=== PATIENT | male | born 1990 | race Hispanic/Latino ===

== ENCOUNTER 2022-03-31 21:20 | Emergency (ER) | payer SELFPAY ==
[2022-03-31] MEDS ORDERED: HALOPERIDOL LACTATE 5 MG/1 ML INJ IM PRN (21:48)
[2022-03-31] MEDS ORDERED: LORazepam 2 MG/ML VIAL IM PRN (21:48)
[2022-03-31 21:51] LABS: Bilirubin,Urine NEG (Negative); Blood,Urine NEG (Negative); Color,Urine Yellow (Yellow); Protein,Urine <15 mg/dL mg/dL (Negative); Urobilinogen,Urine < 2.0 mg/dL (<2.0)
--- NOTE | 2022-03-31 21:54 | Emergency Department Report ---
ED General Adult HPI - General Chief complaint: Psych Stated complaint: SUICIDIAL THOUGHTS Time Seen by Provider: 03/31/22 21:47 Source: patient, RN notes reviewed Mode of arrival: Ambulatory Limitations: No Limitations - History of Present Illness Initial comments: The patient was evaluated in the emergency department for symptoms described in the history of present illness. He/she was evaluated in the context of the global COVID-19 pandemic, which necessitated consideration that the patient might be at risk for infection with the virus that causes COVID-19. Institutional protocols and algorithms that pertain to the evaluation of patients at risk for COVID-19 are in a state of rapid change based on information released by regulatory bodies including the CDC and federal and state organizations. These policies and algorithms were followed during the patient's care in the emergency department. Please note that these policies, procedures and recommendations changed on a rapid basis. This is a 31-year-old gentleman with a history of psychiatric disease, who has not been on his Zyprexa or Depakote for approximately 6 months, Who presents to the department today with a complaint of suicidality, hallucinations, and plans to kill himself. He denies physical pain, cough and urinary symptoms. He denies COVID symptoms. He states he has not tried to overdose today. Triggers include his father recently dying 2 days ago. -: days(s) Consistency: constant Improves with: none Worsens with: none Associated Symptoms: denies other symptoms - Related Data Allergies Allergy/AdvReac Type Severity Reaction Status Date / Time No Known Allergies Allergy Verified 03/31/22 21:30 ED Review of Systems ROS: Stated complaint: SUICIDIAL THOUGHTS Other details as noted in HPI Comment: All other systems reviewed and negative Psychiatric: as per HPI, suicidal thoughts. denies: homicidal thoughts ED Physical Exam - General Limitations: No Limitations General appearance: alert, in no apparent distress - Head Head exam: Present: atraumatic, normocephalic - Eye Eye exam: Present: normal appearance, EOMI. Absent: nystagmus - ENT ENT exam: Present: normal exam, normal orophraynx, mucous membranes moist, normal external ear exam - Neck Neck exam: Present: normal inspection, full ROM. Absent: tenderness, meningismus - Respiratory Respiratory exam: Present: normal lung sounds bilaterally. Absent: respiratory distress, wheezes, rales, rhonchi, stridor, decreased breath sounds - Cardiovascular Cardiovascular Exam: Present: regular rate, normal rhythm, normal heart sounds. Absent: bradycardia, tachycardia, irregular rhythm, systolic murmur, diastolic murmur, rubs, gallop - GI/Abdominal GI/Abdominal exam: Present: soft. Absent: distended, tenderness, guarding, rebound, rigid, pulsatile mass - Rectal Rectal exam: Present: deferred - Extremities Exam Extremities exam: Present: normal inspection, full ROM, normal capillary refill, other (2+ pulses noted in the bilateral upper and lower extremities. There is no palpable cord. negative Homans sign. Muscular compartments are soft. The pelvis is stable.). Absent: pedal edema, calf tenderness - Back Exam Back exam: Present: normal inspection, full ROM. Absent: tenderness, CVA tenderness (R), CVA tenderness (L), paraspinal tenderness, vertebral tenderness - Neurological Exam Neurological exam: Present: alert, oriented X3, normal gait, other (No facial droop. Tongue midline. Extraocular movements intact bilaterally. Facial sensation intact to light touch in V1, V2, V3 distribution bilaterally. 5 and a 5 strength in 4 extremities. Sensation intact to light touch in 4 extremities.). Absent: motor sensory deficit - Psychiatric Psychiatric exam: Present: anxious, suicidal ideation. Absent: agitated, manic, homicidal ideation - Skin Skin exam: Present: warm, dry, intact, normal color. Absent: rash ED Course Vital Signs 03/31/22 21:29 Temperature 98.3 F Pulse Rate 66 Respiratory 18 Rate Blood Pressure 126/77 O2 Sat by Pulse 97 Oximetry - Reevaluation(s) Reevaluation #1: 03/31/22 21:52 Differential diagnosis, including but not limited to to: Depression with psychotic features, medical clearance for psychiatric placement Assessment and plan: 31-year-old gentleman, who is afebrile, with reassuring vital signs, with a benign and unremarkable physical examination, GCS of 15, with a complaint of depression, suicidality and hallucinations. Place patient on 1013. Obtain appropriate laboratory studies. As needed medications ordered. Obtain psychiatric consultation. Discussed this with the patient. He is agreeable to the plan of care. Reassess after laboratory studies have resulted. 03/31/22 23:37 Laboratory studies are unremarkable. COVID swab is pending. The emergency room will follow along as this results. The patient is not hypoxic or symptomatic. I do not clinically suspect acute COVID. At this point in time, this patient does not appear to have an immediate medical contraindication to psychiatric admission, evaluation, consultation and placement. ED Medical Decision Making - Lab Data Result diagrams: 03/31/22 22:55 03/31/22 22:55 Vital Signs 03/31/22 21:29 Temperature 98.3 F Pulse Rate 66 Respiratory 18 Rate Blood Pressure 126/77 O2 Sat by Pulse 97 Oximetry Lab Results 03/31/22 03/31/22 03/31/22 Range/Units 22:55 22:55 22:55 WBC (4.5-11.0) K/mm3 RBC (3.65-5.03) M/mm3 Hgb (11.8-15.2) gm/dl Hct (35.5-45.6) % MCV (84-94) fl MCH (28-32) pg MCHC (32-34) % RDW (13.2-15.2) % Plt Count (140-440) K/mm3 Lymph % (Auto) (13.4-35.0) % [place] % (Auto) (0.0-7.3) % Eos % (Auto) (0.0-4.3) % Baso % (Auto) (0.0-1.8) % Lymph # (Auto) (1.2-5.4) K/mm3 [place] # (Auto) (0.0-0.8) K/mm3 Eos # (Auto) (0.0-0.4) K/mm3 Baso # (Auto) (0.0-0.1) K/mm3 Seg Neutrophils % (40.0-70.0) % Seg Neutrophils # (1.8-7.7) K/mm3 Sodium 139 (137-145) mmol/L Potassium 4.4 (3.6-5.0) mmol/L Chloride 102.0 (98-107) mmol/L Carbon Dioxide 28 (22-30) mmol/L Anion Gap 13 mmol/L BUN 17 (9-20) mg/dL Creatinine 1.0 (0.8-1.3) mg/dL Estimated GFR > 60 ml/min BUN/Creatinine Ratio 17 % Glucose 95 (75-100) mg/dL Calcium 9.6 (8.4-10.2) mg/dL Urine Color (Yellow) Urine Turbidity (Clear) Urine pH (5.0-7.0) Ur Specific [place] (1.003-1.030) Urine Protein (Negative) mg/dL Urine Glucose (UA) (Negative) mg/dL Urine Ketones (Negative) mg/dL Urine Blood (Negative) Urine Nitrite (Negative) Urine Bilirubin (Negative) Urine Urobilinogen (<2.0) mg/dL Ur Leukocyte Esterase (Negative) Urine WBC (Auto) (0.0-6.0) /HPF Urine RBC (Auto) (0.0-6.0) /HPF Salicylates < 0.3 L (2.8-20.0) mg/dL Urine Opiates Screen Urine Methadone Screen Acetaminophen 5.0 L (10.0-30.0) ug/mL Ur Barbiturates Screen Valproic Acid < 2.8 L (50-100) ug/mL Ur Phencyclidine Scrn Ur Amphetamines Screen U Benzodiazepines Scrn Urine Cocaine Screen U Marijuana (THC) Screen Drugs of Abuse Note Plasma/Serum Alcohol (0-0.07) % 03/31/22 03/31/22 03/31/22 Range/Units 22:55 22:55 Unknown WBC 9.5 (4.5-11.0) K/mm3 RBC 5.05 H (3.65-5.03) M/mm3 Hgb 15.3 H (11.8-15.2) gm/dl Hct 44.9 (35.5-45.6) % MCV 89 (84-94) fl MCH 30 (28-32) pg MCHC 34 (32-34) % RDW 12.1 L (13.2-15.2) % Plt Count 268 (140-440) K/mm3 Lymph % (Auto) 32.7 (13.4-35.0) % [place] % (Auto) 4.7 (0.0-7.3) % Eos % (Auto) 3.3 (0.0-4.3) % Baso % (Auto) 0.6 (0.0-1.8) % Lymph # (Auto) 3.1 (1.2-5.4) K/mm3 [place] # (Auto) 0.5 (0.0-0.8) K/mm3 Eos # (Auto) 0.3 (0.0-0.4) K/mm3 Baso # (Auto) 0.1 (0.0-0.1) K/mm3 Seg Neutrophils % 58.7 (40.0-70.0) % Seg Neutrophils # 5.6 (1.8-7.7) K/mm3 Sodium (137-145) mmol/L Potassium (3.6-5.0) mmol/L Chloride (98-107) mmol/L Carbon Dioxide (22-30) mmol/L Anion Gap mmol/L BUN (9-20) mg/dL Creatinine (0.8-1.3) mg/dL Estimated GFR ml/min BUN/Creatinine Ratio % Glucose (75-100) mg/dL Calcium (8.4-10.2) mg/dL Urine Color Yellow (Yellow) Urine Turbidity Clear (Clear) Urine pH 7.0 (5.0-7.0) Ur Specific [place] 1.016 (1.003-1.030) Urine Protein <15 mg/dl (Negative) mg/dL Urine Glucose (UA) Neg (Negative) mg/dL Urine Ketones Neg (Negative) mg/dL Urine Blood Neg (Negative) Urine Nitrite Neg (Negative) Urine Bilirubin Neg (Negative) Urine Urobilinogen < 2.0 (<2.0) mg/dL Ur Leukocyte Esterase Neg (Negative) Urine WBC (Auto) 1.0 (0.0-6.0) /HPF Urine RBC (Auto) 2.0 (0.0-6.0) /HPF Salicylates (2.8-20.0) mg/dL Urine Opiates Screen Urine Methadone Screen Acetaminophen (10.0-30.0) ug/mL Ur Barbiturates Screen Valproic Acid (50-100) ug/mL Ur Phencyclidine Scrn Ur Amphetamines Screen U Benzodiazepines Scrn Urine Cocaine Screen U Marijuana (THC) Screen Drugs of Abuse Note Plasma/Serum Alcohol < 0.01 (0-0.07) % 03/31/22 Range/Units Unknown WBC (4.5-11.0) K/mm3 RBC (3.65-5.03) M/mm3 Hgb (11.8-15.2) gm/dl Hct (35.5-45.6) % MCV (84-94) fl MCH (28-32) pg MCHC (32-34) % RDW (13.2-15.2) % Plt Count (140-440) K/mm3 Lymph % (Auto) (13.4-35.0) % [place] % (Auto) (0.0-7.3) % Eos % (Auto) (0.0-4.3) % Baso % (Auto) (0.0-1.8) % Lymph # (Auto) (1.2-5.4) K/mm3 [place] # (Auto) (0.0-0.8) K/mm3 Eos # (Auto) (0.0-0.4) K/mm3 Baso # (Auto) (0.0-0.1) K/mm3 Seg Neutrophils % (40.0-70.0) % Seg Neutrophils # (1.8-7.7) K/mm3 Sodium (137-145) mmol/L Potassium (3.6-5.0) mmol/L Chloride (98-107) mmol/L Carbon Dioxide (22-30) mmol/L Anion Gap mmol/L BUN (9-20) mg/dL Creatinine (0.8-1.3) mg/dL Estimated GFR ml/min BUN/Creatinine Ratio % Glucose (75-100) mg/dL Calcium (8.4-10.2) mg/dL Urine Color (Yellow) Urine Turbidity (Clear) Urine pH (5.0-7.0) Ur Specific [place] (1.003-1.030) Urine Protein (Negative) mg/dL Urine Glucose (UA) (Negative) mg/dL Urine Ketones (Negative) mg/dL Urine Blood (Negative) Urine Nitrite (Negative) Urine Bilirubin (Negative) Urine Urobilinogen (<2.0) mg/dL Ur Leukocyte Esterase (Negative) Urine WBC (Auto) (0.0-6.0) /HPF Urine RBC (Auto) (0.0-6.0) /HPF Salicylates (2.8-20.0) mg/dL Urine Opiates Screen Negative Urine Methadone Screen Negative Acetaminophen (10.0-30.0) ug/mL Ur Barbiturates Screen Negative Valproic Acid (50-100) ug/mL Ur Phencyclidine Scrn Negative Ur Amphetamines Screen Negative U Benzodiazepines Scrn Negative Urine Cocaine Screen Negative U Marijuana (THC) Screen Negative Drugs of Abuse Note Disclamer Plasma/Serum Alcohol (0-0.07) % Critical care attestation.: If time is entered above; I have spent that time in minutes in the direct care of this critically ill patient, excluding procedure time. ED Disposition Clinical Impression: Suicidal ideation, Medical clearance for psychiatric admission Disposition: [address] [place] [address] Is pt being admited?: No Does the pt Need Aspirin: No Condition: Good
[2022-03-31 21:58] LABS: Amphetamine Screen,Urine Negative; Benzodiazepines Screen,Urine Negative; Cannabinoid Screen,Urine Negative; Cocaine Screen,Urine Negative; Methadone Screen,Urine Negative; Opiate Screen,Urine Negative
[2022-03-31 23:10] LABS: Basophils # (Auto) 0.1 K/mm3 (0.0-0.1); Basophils % (Auto) 0.6 % (0.0-1.8); Eosinophils # (Auto) 0.3 K/mm3 (0.0-0.4); Eosinophils % (Auto) 3.3 % (0.0-4.3); Hematocrit 44.9 % (35.5-45.6); Hemoglobin 15.3 gm/dl (11.8-15.2); Lymphocytes # (Auto) 3.1 K/mm3 (1.2-5.4); Lymphocytes % (Auto) 32.7 % (13.4-35.0); Mean Corpuscular HGB Conc 34 % (32-34); Mean Corpuscular Volume 89 fl (84-94); Monocytes # (Auto) 0.5 K/mm3 (0.0-0.8); Monocytes % (Auto) 4.7 % (0.0-7.3); Platelet Count 268 K/mm3 (140-440); Red Blood Count 5.05 M/mm3 (3.65-5.03); Red Cell Distribution Width 12.1 % (13.2-15.2)
[2022-03-31 23:30] LABS: BUN/Creatinine Ratio 17; Blood Urea Nitrogen 17 mg/dL (9-20); Calcium 9.6 mg/dL (8.4-10.2); Hemolysis Index 17
--- NOTE | 2022-04-01 10:26 | Consultation ---
History of Present Illness - Reason for Consult Consult date: 04/01/22 Reason for consult: suicidal ideation - History of Present Psychiatric Illness HPI: This is a 31-year-old gentleman with a history of psychiatric disease, who has not been on his Zyprexa or Depakote for approximately 6 months, Who presents to the department today with a complaint of suicidality, hallucinations, and plans to kill himself. He denies physical pain, cough and urinary symptoms. He denies COVID symptoms. He states he has not tried to overdose today. Triggers include his father recently dying 2 days ago. The patient is a 31 year old male with history of schizophrenia and bipolar who presents to the ED with suicidal ideation. The patient was seen today. He is calm, alert and oriented x3. He reports suicidal ideation x 3 days. The patient states he was recently kicked out from [facility] because he refused to show up at work; he reports his father passed 3 days ago. He endorses suicidal ideation with a plan " jump out in front of a truck;" he states the voices are talking about his father and that he is seeing crazy things. PAST PSYCHIATRIC HISTORY Diagnoses: schizophrenia, Bipolar Suicide attempts or Self-harm behavior: Yes Prior psychiatric hospitalizations: Yes Substance Abuse history: Methaphentamines Previous psychiatric medications tried:Zyprexa, Depakote Outpatient treatment: Unknown PAST MEDICAL HISTORY: none reported Family Psychiatric History: None reported or documented SOCIAL HISTORY Marital Status: Single Living Arrangements: Homeless Employment Status: unemployed Access to guns/weapons: Denies Education: Some college History of Abuse: none reported Legal History: none reported REVIEW OF SYSTEMS Constitutional: Negative for weight loss ENT: Negative for stridor Respiratory: Negative for cough or hemoptysis All other systems reviewed and are negative MENTAL STATUS EXAMINATION General Appearance and Behavior: Age appropriate, good hygiene, wearing appropriate clothes, fair eye contact, cooperative polite with questioning. Cooperation: Participating/engaged, guarded Psychomotor Behavior: unremarkable and within normal limits Mood: Depressed Affect and affective range: congruent with mood Thought Process: Goal directed Thought Content: suicidal/hallucinations Speech: Normal volume, Regular rate and rhythm, Suicidal Ideation:Yes Homicidal Ideation: Denies Hallucinations: Auditory/Visual Delusions: None Impulse Control: Questionable Insight and Judgment: Limited insight and poor judgment, Memory: Normal, Attention: Normal, Orientation: Alert, oriented, Assessment and Plan (1) Schizophrenia Treatment 1013 Continue home meds. Start Zyprexa 5mg po Qhs Star Depakote Dr 125mg po BID Sitter: Per primary Medical: Per primary Disposition: Recommend acute inpatient psychiatric treatment. Will follow. Thanks Case staffed with Dr. Mccormick Medications and Allergies Medications and Allergies Allergies Allergy/AdvReac Type Severity Reaction Status Date / Time No Known Allergies Allergy Verified 03/31/22 21:30 Active Meds: Active Medications Haloperidol Lactate (Haloperidol Lactate 5 Mg/1 Ml Inj) 5 mg IM Q6HR PRN PRN Reason: Agitation Last Admin: 04/01/22 01:59 Dose: 5 mg Lorazepam (Lorazepam 2 Mg/Ml Vial) 2 mg IM Q4HR PRN PRN Reason: Agitation Last Admin: 04/01/22 01:59 Dose: 2 mg Mental Status Exam - Vital signs Last Vital Signs Temp 98.2 F 04/01/22 08:37 Pulse 76 04/01/22 08:37 Resp 18 04/01/22 08:37 BP 118/71 04/01/22 08:37 Pulse Ox 95 04/01/22 08:37 Results Result Diagrams: 03/31/22 22:55 03/31/22 22:55 Abnormal lab results 03/31/22 03/31/22 03/31/22 Range/Units 22:55 22:55 22:55 RBC 5.05 H (3.65-5.03) M/mm3 Hgb 15.3 H (11.8-15.2) gm/dl RDW 12.1 L (13.2-15.2) % Salicylates < 0.3 L (2.8-20.0) mg/dL Acetaminophen 5.0 L (10.0-30.0) ug/mL Valproic Acid < 2.8 L (50-100) ug/mL All other labs normal.
[2022-04-01] MEDS ORDERED: DIVALPROEX DR 125 MG TAB PO SCH (11:00)
--- NOTE | 2022-04-01 12:04 | Emergency Department Report ---
Blank Doc - Documentation Documentation: 31-year-old male with schizophrenia presents to the hospital suicidal ideation. Vital signs reviewed and unremarkable. No adverse events documented overnight. Currently awaiting placement.
[2022-04-01 19:36] VITALS: BP 100/66
== END 2022-04-02 05:00 ==
LOC: EEVIPCON 21:20 → ED 21:20
DX: R45.851 Suicidal ideations (principal); Z13.30 Encounter for screening examination for mental health and behavioral disorders, unspecified; Z20.822 Contact with and (suspected) exposure to COVID-19
CPT/HCPCS: 36415; 80048; 80164; 80307; 81001; 85025; 96372; 99285; J1630; J2060; U0003; 80320; G0480

== ENCOUNTER 2022-04-19 03:12 | Emergency (ER) | payer SELFPAY ==
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
[2022-04-19 04:15] LABS: Basophils % (Auto) 0.5 % (0.0-1.8); Eosinophils # (Auto) 0.4 K/mm3 (0.0-0.4); Eosinophils % (Auto) 4.4 % (0.0-4.3); Hematocrit 42.5 % (35.5-45.6); Hemoglobin 14.8 gm/dl (11.8-15.2); Lymphocytes # (Auto) 2.8 K/mm3 (1.2-5.4); Mean Corpuscular HGB Conc 35 % (32-34); Mean Corpuscular Volume 89 fl (84-94); Monocytes # (Auto) 0.8 K/mm3 (0.0-0.8); Platelet Count 198 K/mm3 (140-440); Red Blood Count 4.77 M/mm3 (3.65-5.03); Red Cell Distribution Width 12.1 % (13.2-15.2)
[2022-04-19 04:24] LABS: Alanine Aminotransferase 20 units/L (7-56); Albumin 4.2 g/dL (3.9-5); BUN/Creatinine Ratio 18; Blood Urea Nitrogen 18 mg/dL (9-20); Calcium 9.5 mg/dL (8.4-10.2); Hemolysis Index 13
--- NOTE | 2022-04-19 10:23 | Consultation ---
History of Present Illness - Reason for Consult Consult date: 04/19/22 Reason for consult: SI - History of Present Psychiatric Illness The patient was seen today. He endorses depression, and suicidal thoughts due to the of his father. The patient states his father Thursday. The patient is not forthcoming. He was also seen last month, and stated this very thing, that his father had two days ago. The patient states he was about to jump in front of a car but got arrested. He says he has a history of Bipolar Disorder and has been off of his meds for about 4 days. He says he hears voices telling him to hurt himself. PAST PSYCHIATRIC HISTORY Diagnoses: schizophrenia, Bipolar Suicide attempts or Self-harm behavior: Yes Prior psychiatric hospitalizations: Yes Substance Abuse history: Methaphentamines Previous psychiatric medications tried:Zyprexa, Depakote Outpatient treatment: Unknown PAST MEDICAL HISTORY: none reported Family Psychiatric History: None reported or documented SOCIAL HISTORY Marital Status: Single Living Arrangements: Homeless Employment Status: unemployed Access to guns/weapons: Denies Education: Some college History of Abuse: none reported Legal History: none reported REVIEW OF SYSTEMS Constitutional: Negative for weight loss ENT: Negative for stridor Respiratory: Negative for cough or hemoptysis All other systems reviewed and are negative MENTAL STATUS EXAMINATION General Appearance and Behavior: Age appropriate, good hygiene, wearing appropriate clothes, fair eye contact, cooperative polite with questioning. Cooperation: Participating/engaged, guarded Psychomotor Behavior: unremarkable and within normal limits Mood: Depressed Affect and affective range: congruent with mood Thought Process: Goal directed Thought Content: suicidal/hallucinations Speech: Normal volume, Regular rate and rhythm, Suicidal Ideation:Yes Homicidal Ideation: Denies Hallucinations: Auditory Delusions: None Impulse Control: Questionable Insight and Judgment: Limited insight and poor judgment, Memory: Normal, Attention: Normal, Orientation: Alert, oriented, Assessment and Plan (1) Schizophrenia Treatment 1013 Start Zyprexa 5mg po Qhs Star Depakote Dr 125mg po BID Sitter: Per primary Medical: Per primary Disposition: Recommend acute inpatient psychiatric treatment. Will follow. Thanks Case staffed with Dr. Mccormick Medications and Allergies Allergies Allergy/AdvReac Type Severity Reaction Status Date / Time No Known Allergies Allergy Verified 03/31/22 21:30 Mental Status Exam - Vital signs Last Vital Signs Temp 97.4 F L 04/19/22 09:57 Pulse 78 04/19/22 09:57 Resp 18 04/19/22 09:57 BP 113/69 04/19/22 09:57 Pulse Ox 97 04/19/22 09:57 Results Result Diagrams: 04/19/22 03:50 04/19/22 03:50 Abnormal lab results 04/19/22 04/19/22 04/19/22 Range/Units 03:50 03:50 03:50 MCHC 35 H (32-34) % RDW 12.1 L (13.2-15.2) % [place] % (Auto) 9.0 H (0.0-7.3) % Eos % (Auto) 4.4 H (0.0-4.3) % Glucose (75-100) mg/dL Salicylates < 0.3 L (2.8-20.0) mg/dL Acetaminophen 5.0 L (10.0-30.0) ug/mL Valproic Acid 21.7 L (50-100) ug/mL 04/19/22 Range/Units 03:50 MCHC (32-34) % RDW (13.2-15.2) % [place] % (Auto) (0.0-7.3) % Eos % (Auto) (0.0-4.3) % Glucose 131 H (75-100) mg/dL Salicylates (2.8-20.0) mg/dL Acetaminophen (10.0-30.0) ug/mL Valproic Acid (50-100) ug/mL All other labs normal.
[2022-04-19] MEDS: DIVALPROEX DR 125 MG TAB PO SCH ×2 (11:25→22:07)
--- NOTE | 2022-04-19 14:48 | Event Note ---
Date: 04/19/22 Patient assessed today and is currently alert and oriented, calm and in no acute distress. 1013 currently on file.
[2022-04-19 14:53] LABS: Bilirubin,Urine NEG (Negative); Blood,Urine NEG (Negative); Color,Urine Yellow (Yellow); Protein,Urine <15 mg/dL mg/dL (Negative); Urobilinogen,Urine < 2.0 mg/dL (<2.0)
[2022-04-19 14:57] LABS: RBC,Urine < 1.0 /HPF (0.0-6.0)
[2022-04-19 15:00] LABS: Amphetamine Screen,Urine Negative; Benzodiazepines Screen,Urine Negative; Cannabinoid Screen,Urine Negative; Cocaine Screen,Urine Negative; Methadone Screen,Urine Negative; Opiate Screen,Urine Negative
[2022-04-19] MEDS ORDERED: traZODone 50 MG TAB PO SCH (22:00)
--- NOTE | 2022-04-20 10:06 | Progress Note ---
Subjective - Reason for Consult Consult date: 04/20/22 Reason for consult: depression - Chief Complaint Chief complaint: The patient was seen today. He is sleeping but easily arouses. The patient says he's still depressed about the loss of his father two days ago. I ask the patient about him telling me that his father passed two days ago, and that he also stated that a month ago when he came in. The patient becomes upset and starts talking loudly. He says "ok, the truth is I aint got no place to live. I came here to get a ticket back to [place]." He then says "my father has been dying. Hell, I don't know." The patient starts shouting, "I'm not going back to that [facility]. I don't like it cause I'm tired of arguing with folks about food. I'm not going to leave here just to be waking around." He then says "because I'm white. They told me I was acting like that at the [facility] because the barrera was black, and that is why." He says "I need to get back to [place]." I ask the patient if he could catch the bus, he says "how can I do that. I don't have no money." I ask the patient what did he need me to do to help him. He starts ranting and waving his hands and says "what do you want me to tell you?" I ask the patient to calm down, and lower his voice. I offer to buy him a bus ticket, and look in my phone to purchase the ticket. The patient is irritable, and still talking loudly. "Well, how am I going to get to the bus station. Hell, I'm not walking there." Security also asks the patient to lower his voice, and mentions a place that will buy the patient a ticket. He says "where is that at? I'm not walking there." Security and staff nurse are present during evaluation. Will no longer recommend acute psychiatric inpatient treatment. The patient has verbally admitted that he's here for secondary gains. REVIEW OF SYSTEMS Constitutional: Negative for weight loss ENT: Negative for stridor Respiratory: Negative for cough or hemoptysis All other systems reviewed and are negative MENTAL STATUS EXAMINATION General Appearance and Behavior: Age appropriate, good hygiene, wearing appropriate clothes, good eye contact, rude, irritable Cooperation: Participating/engaged, guarded Psychomotor Behavior: unremarkable and within normal limits Mood: Depressed Affect and affective range: congruent with mood Thought Process: Goal directed Thought Content: None Speech: loud Suicidal Ideation: Denies Homicidal Ideation: Denies Hallucinations: Denies Delusions: None elicited Impulse Control: Limited Insight and Judgment: Limited insight and judgment, Memory: Normal Attention: Normal Orientation: Alert, oriented Assessment and Plan (1) Schizophrenia Treatment d/c 1013 Zyprexa 5mg po Qhs Depakote Dr 125mg po BID Trazodone 50mg po qhs Sitter: Per primary Medical: Per primary Disposition: Do not recommend acute inpatient psychiatric treatment. The filters assembler to give the patient all necessary outpatient resources. Will sign off. Thanks Case staffed with Dr. Mccormick Mental Status Exam - Vital signs Last Vital Signs Temp 97.4 F L 04/19/22 09:57 Pulse 78 04/19/22 09:57 Resp 18 04/19/22 09:57 BP 113/69 04/19/22 09:57 Pulse Ox 98 04/19/22 23:12
[2022-04-20] MEDS: DIVALPROEX DR 125 MG TAB PO SCH (10:20)
[2022-04-20 10:49] VITALS: BP 115/68
--- NOTE | 2022-04-20 11:24 | Event Note ---
Date: 04/20/22 31 YEAR OLD PRESENTED TO THE ED WITH SI AND MEDICAL NONCOMPLIANT WITH HIS MEDICATION. I HAVE SEEN THE PATIENT MYSELF AND PATIENT CURRENTLY DENIES ANY SI/HI OR HALLUCINATION. PATIENT HAVE BEEN EVALUATED BY [employer] AND [id number] IS RamnaYPFAMILIA MANRIQUEZ TRAZODONVazquez WHICH I HAVE INFORMED PATIENT TO R[employer] OPERATOR MEDICATION AND FOLLOW UP WITH PCP WITHIN 3 DAYS. RETURN TO ER IF ANY SI/HI AND PATIENT UNDERSTOOD.
== END 2022-04-20 11:51 | disposition home or self-care (01) ==
LOC: ED 03:12
DX: R45.851 Suicidal ideations (principal); Z20.822 Contact with and (suspected) exposure to COVID-19; F17.200 Nicotine dependence, unspecified, uncomplicated
CPT/HCPCS: 36415; 80053; 80164; 80307; 81001; 85025; 87086; 99284; U0003; 80320; G0480